=== PATIENT | female | born 1995 | race Caucasian/White ===

== ENCOUNTER 2018-09-21 08:54 | Emergency (ER) | payer OTHER ==
[2018-09-21 09:03] VITALS: BP 139/85
--- NOTE | 2018-09-21 10:00 | ED Physician Documentation ---
History of Present Illness - Stated complaint Stated Complaint: FINGER LAC - Chief complaint Chief Complaint: Laceration - Additonal information Additional information: hx from pt 22 y/o f lac to DIP L 4th finger yesterday cutting [place] open and bleeds with ROM tdap UTD Review of Systems Skin: reports: Laceration (s) PD PAST MEDICAL HISTORY - Past Medical History Past Medical History: Yes Other Past Medical History: PCOS and "sub-clinical hypothyroidism" - Past Surgical History Past Surgical History: No - Present Medications Home Medications: Ambulatory Orders Medication Instructions Recorded Confirmed Contol 09/21/18 Spironolactone 50 mg PO DAILY 09/21/18 09/21/18 - Social History Does the pt smoke?: No Smoking Status: Never smoker Does the pt drink ETOH?: No Does the pt have substance abuse?: No - Immunizations Immunizations are current?: Yes PD ED PE NORMAL - Vitals Vital signs reviewed: Yes - Derm Derm: Other (1 cm lac to medial DIP, MSV intact no FB) Results - Vitals Vitals: Vital Signs - 24 hr 09/21/18 08:57 Temperature 36.5 C Heart Rate 74 Respiratory 16 Rate Blood Pressure 139/85 H O2 Saturation 100 Oxygen O2 Source Room air PD MEDICAL DECISION MAKING - ED course ED course: delayed so just placed a dot of demrabiond in middle of cut after irrigation and will splint to prevent re-opening Departure - Departure Disposition: 01 Home, Self Care Clinical Impression: Laceration Condition: Good Instructions: ED Laceration Ext Skin Glue Comments: Because the injury occurred yesterday I could not suture it without increasing the risk of infection So I secured the edges with a dot of dermabond And we splint the finger to prevent accidentally moving it and re-opening the wound
== END 2018-09-21 10:24 | disposition home or self-care (01) ==
LOC: ED 08:54
DX: S61.215A Laceration without foreign body of left ring finger without damage to nail, initial encounter (principal); W26.0XXA Contact with knife, initial encounter; Y93.G1 Activity, food preparation and clean up
CPT/HCPCS: 29130; 99282; 99283